=== PATIENT | male | born 1980 | race Caucasian/White ===

== ENCOUNTER 2018-11-21 07:17 | Emergency (ER) | payer OTHER ==
--- NOTE | 2018-11-21 07:19 | PDOC ---
History of Present Illness - General Chief Complaint: Sore Throat Stated Complaint: sore throat Time Seen by Provider: 11/21/18 07:19 History Source: Patient Exam Limitations: No Limitations - History of Present Illness Timing/Duration: 24 hours Past History - Travel Traveled outside of the country in the last 30 days: No Close contact w/someone who was outside of country & ill: No - Past Medical History Allergies/Adverse Reactions: Allergies Allergy/AdvReac Type Severity Reaction Status Date / Time Penicillins Allergy Verified 11/21/18 07:18 Home Medications: Ambulatory Orders Azithromycin [Zithromax] 500 mg PO DAILY #5 tablet 11/21/18 - Suicide/Smoking/Psychosocial Hx Smoking History: Unknown if ever smoked Have you smoked in the past 12 months: No Number of Cigarettes Smoked Daily: 0 Hx Alcohol Use: No Drug/Substance Use Hx: No Substance Use Type: None Review of Systems - Review of Systems Constitutional: No: Symptoms Reported, See HPI, Chills, Diaphoresis, Fever, Loss of Appetite, Malaise, Night Sweats, Weakness, Weight Stable, Unintentional Wgt. Loss, Unexplained wgt Loss, Other HEENTM: Yes: Ear Pain, Throat Pain. No: Symptoms Reported, See HPI, Eye Pain, Blurred Vision, Tearing, Recent change in vision, Double Vision, Cataracts, Ocular Prothesis, Ear Discharge, Nose Pain, Nose Congestion, Tinnitus, Nose Bleeding, Hearing Loss, Throat Swelling, Mouth Pain, Dental Problems, Difficulty Swallowing, Mouth Swelling, Other Respiratory: Yes: Cough. No: Symptoms reported, See HPI, Orthopnea, Shortness of Breath, SOB with Exertion, SOB at Rest, Stridor, Wheezing, Productive cough, Hemoptysis, Other Cardiac (ROS): No: Symptoms Reported, See HPI, Chest Pain, Edema, Irregular Heart Rate, Lightheadedness, Palpitations, Syncope, Chest Tightness, Other ABD/GI: No: Symptoms Reported, See HPI, Abdominal Distended, Abd. Pain w/ defecation, Blood Streaked Bowels, Constipated, Diarrhea, Difficulty Swallowing , Nausea, Poor Appetite, Poor Fluid Intake, Rectal Bleeding, Vomiting, Indigestion, Abdominal cramping, Tarry Stools, Other : No: Symptoms Reported, See HPI, Burning, Dysuria, Discharge, Frequency, Flank Pain, Hematuria, Incontinence, Pain, Urgency, Testicular Mass, Testicular Swelling, Lesions, Testicular Pain, Other Musculoskeletal: No: Symptoms Reported, See HPI, Back Pain, Gout, Joint Pain, Joint Swelling, Muscle Pain, Muscle Weakness, Neck Pain, Joint Stiffness, Other Integumentary: No: Symptoms Reported, See HPI, Bruising, Change in Color, Change in Hair/Nails, Dryness, Erythema, Flushing, Lesions, Lumps, Pallor, Pruritus, Rash, Sweating, Other Neurological: No: Symptoms reported, See HPI, Headache, Numbness, Paresthesia, Pre-Existing Deficit, Seizure, Tingling, Tremors, Weakness, Unsteady Gait, Ataxia, Dizziness, Other *Physical Exam - Physical Exam General Appearance: Yes: Nourished HEENT: positive: EOMI, [place], Normal ENT Inspection, Normal Voice, Symmetrical, TMs Normal, Pharynx Normal, Tonsillar Exudate, Other (fluid behind left TM/ bubbles) Neck: positive: Trachea midline, Lymphadenopathy (R) (tight pharyngeal exudate) Respiratory/Chest: positive: Lungs Clear, Normal Breath Sounds Cardiovascular: positive: Regular Rhythm, Regular Rate, S1, S2 Gastrointestinal/Abdominal: positive: Normal Bowel Sounds, Flat, Soft Musculoskeletal: positive: Normal Inspection, CVA Tenderness Extremity: positive: Normal Capillary Refill, Normal Inspection, Normal Range of Motion Integumentary: positive: Normal Color, Dry, Warm Neurologic: positive: cost specialist II-XII NML intact, Fully Oriented, Alert, Normal Mood/ Affect, Normal Response, Motor Strength 5/5 *DC/Admit/Observation/Transfer Diagnosis at time of Disposition: Strep pharyngitis - Discharge Dispostion Disposition: HOME Condition at time of disposition: Stable Decision to Admit order: No - Prescriptions Prescriptions: Azithromycin [Zithromax] 500 mg PO DAILY #5 tablet - Referrals - Patient Instructions Printed Discharge Instructions: Strep Throat - Post Discharge Activity Forms/Work/School Notes: Back to Work
[2018-11-21 07:21] VITALS: BP 141/96; PULSE 83; TEMP 98.3; BMI 24.3
[2018-11-21] MEDS ORDERED: IBUPROFEN 600 MG TABLET (FP) PO ONE ×2 (07:23→07:24)
[2018-11-21] MEDS ORDERED: AZITHROMYCIN 250 MG TABLET PO ONE (07:23)
[2018-11-21] MEDS ORDERED: AZITHROMYCIN 250 MG TABLET ONE (07:24)
== END 2018-11-21 07:32 | disposition home or self-care (01) ==
LOC: FER 07:17
DX: J02.9 Acute pharyngitis, unspecified (principal)
CPT/HCPCS: 87070; 87077; 87880; 99281-25

== ENCOUNTER 2018-12-16 07:52 | Emergency (ER) | payer OTHER ==
[2018-12-16 08:03] VITALS: BP 126/84; PULSE 79; TEMP 98.3; BMI 23.6
--- NOTE | 2018-12-16 08:13 | PDOC ---
History of Present Illness - General Chief Complaint: Ear Problem Stated Complaint: WATER IN EARS History Source: Patient Exam Limitations: No Limitations - History of Present Illness Initial Comments: 12/16/18 08:14 38 yo male h/o tobacco use here wth c/o ear fullness left greater than right. states had a uri one month ago and has been having symptoms ever since. no change to hearing. no headache. no f/c no pain. no trauma to ears. does have sore throat in am, with need to clear throat. no vertigo. no n/v no other complaints. Past History - Past Medical History Allergies/Adverse Reactions: Allergies Allergy/AdvReac Type Severity Reaction Status Date / Time Penicillins Allergy Unknown Verified 12/16/18 07:54 Home Medications: Ambulatory Orders Cetirizine HCl/Pseudoephedrine [Zyrtec-D Tablet] 1 each PO DAILY PRN #30 tab.er.12h 12/16/18 Fluticasone Prop 0.05% Nasal [Flonase -] 1 spray NS DAILY #1 bot 12/16/18 CVA: No COPD: No - Suicide/Smoking/Psychosocial Hx Smoking History: Never smoked Have you smoked in the past 12 months: No Number of Cigarettes Smoked Daily: 0 Information on smoking cessation initiated: No Hx Alcohol Use: No Drug/Substance Use Hx: Yes (MARIJUANA) Substance Use Type: None Review of Systems - Review of Systems Constitutional: No: Chills, Diaphoresis, Fever HEENTM: Yes: Other (ear fullness). No: Tearing Cardiac (ROS): No: Chest Pain, Edema Neurological: No: Unsteady Gait, Ataxia All Other Systems: Reviewed and Negative *Physical Exam - Vital Signs Last Vital Signs Temp Pulse Resp BP Pulse Ox 98.3 F 79 20 126/84 99 12/16/18 07:53 12/16/18 07:53 12/16/18 07:53 12/16/18 07:53 12/16/18 07:53 - Physical Exam Comments: 12/16/18 08:21 awake alert TM clear bilaterally mild serous effusion. no exudate. no canal erythema. good light reflex. no bulging. throat post pharynx cobblestoning. lungs clear bilateraly heart rrr no mrg . nuero awake alert oriented x 3. gait steady. Moderate Sedation - Procedure Monitoring Vital Signs: Procedure Monitoring Vital Signs Temperature 98.3 F 12/16/18 07:53 Pulse Rate 79 12/16/18 07:53 Respiratory Rate 20 12/16/18 07:53 Blood Pressure 126/84 12/16/18 07:53 O2 Sat by Pulse Oximetry (%) 99 12/16/18 07:53 Medical Decision Making - Medical Decision Making 12/16/18 08:08 pt with sinusitis, post nasal drip and ear fullness. recommmend decongestant, and flonase fu ENT *DC/Admit/Observation/Transfer Diagnosis at time of Disposition: Sinusitis, Post-nasal drip - Discharge Dispostion Disposition: HOME Condition at time of disposition: Improved - Prescriptions Prescriptions: Cetirizine HCl/Pseudoephedrine [Zyrtec-D Tablet] 1 each PO DAILY PRN #30 tab.er.12h PRN Reason: Nasal Congestion Fluticasone Prop 0.05% Nasal [Flonase -] 1 spray NS DAILY #1 bot - Referrals Referrals: Davey Mayorga MD [Staff Physician] - Fadi Marin [Non Staff, Medical] - - Patient Instructions Printed Discharge Instructions: Sinusitis, Smoking and Smoking Cessation in Relation to Mortality in Women, Web and Computer Based Smoking Cessation Programs May Be Effective Additional Instructions: you should follow up with an ear nose and throat doctor. you should also quit smoking. take zyrtec D daily during allergy seasons to prevent sinus inflammation and post nasal drip in addition to flonase nasal spray daily . see referral for ear nose and throat DR MARGIE. - Post Discharge Activity
== END 2018-12-16 08:18 | disposition home or self-care (01) ==
LOC: FER 07:52
DX: J32.9 Chronic sinusitis, unspecified (principal); R09.82 Postnasal drip
CPT/HCPCS: 99281-25